=== PATIENT | female | born 1955 | race Two or more races ===

== ENCOUNTER 2024-06-06 15:38 | Emergency (ER) | payer MEDICARE ==
[~2024-06-06] VITALS: Ht 157.5 cm; Wt 62.3 kg
[2024-06-06] MEDS: cloNIDine HCL 0.1 MG TAB PO ONE (17:21)
[2024-06-06] MEDS ORDERED: IBUP-1454 PO (17:43)
[2024-06-06] MEDS ORDERED: CHLO25TA2 PO (17:45)
[2024-06-06 18:23] VITALS: BP 168/92; PULSE 92; RESP 20; TEMP 99.7; O2SAT 99
== END 2024-06-06 18:24 | disposition home or self-care (01) ==
LOC: ER 15:57
DX: S62.512A Displaced fracture of proximal phalanx of left thumb, initial encounter for closed fracture (principal); W18.39XA Other fall on same level, initial encounter; Y93.89 Activity, other specified; Y92.89 Other specified places as the place of occurrence of the external cause; Y99.8 Other external cause status
CPT/HCPCS: 29125; 29130; 73130; 93005